=== PATIENT | male | born 1970 | race Caucasian/White ===

== ENCOUNTER 2018-08-08 22:22 | Emergency (ER) | payer SELFPAY ==
[2018-08-08 22:32] VITALS: BP 139/81
--- NOTE | 2018-08-08 23:08 | RADIOLOGY REPORT (SQ) ---
EXAM DESCRIPTION: XR RIBS UNILATERAL WITH CHEST COMPLETED DATE/TME: 08/08/2018 00:00 CLINICAL HISTORY: 48 years, Male, Fell on steps-Has R rib pain/hard to breathe Comparison: None FINDINGS: No focal lung consolidation. No pleural effusion. No pneumothorax. Cardiac and mediastinal silhouette is unremarkable. Soft tissues are unremarkable. Dedicated views of the right ribs show an acute fracture of the eighth posterior rib on the right. IMPRESSION: Right eighth posterior rib fracture. No pneumothorax.
[2018-08-08] MEDS ORDERED: OXYCODONE-ACETAMINOPHEN 5-325 MG TABLET PO ONE (23:14)
--- NOTE | 2018-08-08 23:19 | ER Document Report ---
ED General - General Chief Complaint: Fall Injury Stated Complaint: RIB INJURY/PAIN Time Seen by Provider: 08/08/18 23:03 Mode of Arrival: Ambulatory Information source: Patient TRAVEL OUTSIDE OF THE [place] IN LAST 30 DAYS: No - HPI Patient complains to provider of: Possible rib injury Onset: Just prior to arrival Onset/Duration: Sudden Quality of pain: Sharp, Stabbing Severity: Severe Pain Level: 5 Context: Horseplaying with son Associated symptoms: None Exacerbated by: Movement Relieved by: Denies Similar symptoms previously: No Recently seen / treated by doctor: No Notes: 48-year-old male coming in today with right sided back and chest wall pain after falling down some stairs while horse playing with his son. Symptoms started this evening after a fall down some stairs. Short of breath only because of pain. Past Medical History - Social History Smoking Status: Current Every Day Smoker Chew tobacco use (# tins/day): No Frequency of alcohol use: Social Drug Abuse: None, Marijuana Family History: Reviewed & Not Pertinent Patient has suicidal ideation: No Patient has homicidal ideation: No Endocrine Medical History: Reports: Hx Diabetes Mellitus Type 2 Renal/ Medical History: Denies: Hx Peritoneal Dialysis Past Surgical History: Reports: Hx Appendectomy Review of Systems - Review of Systems Notes: Constitutional: No fevers. No chills. EENT: No eye redness. No eye pain. No ear pain. No sore throat. Cardiovascular: No chest pain. No palpitations. Respiratory: No cough. No shortness of breath. No respiratory distress. Gastrointestinal: No abdominal pain. No nausea, vomiting, or diarrhea. Genitourinary: Atraumatic. No lesions. No pain. No discharge. Musculoskeletal: Right anterior and posterior chest wall pain Skin: No rash or lesions. Lymphatic: No swollen lymph nodes. Neurologic: No headache. No syncope. Psychiatric: No suicidal or homicidal ideation. Physical Exam - Vital signs Vitals: Temp Pulse Resp BP Pulse Ox 98.0 F 88 18 139/81 H 94 08/08/18 22:30 08/08/18 22:30 08/08/18 22:30 08/08/18 22:30 08/08/18 22:30 - Notes Notes: General: Well-developed, well-nourished. In no acute distress. Non-toxic michael earing. Cardiac: Well-perfused. Regular rate and rhythm. No murmurs, rubs, or gallops. Pulmonary: No respiratory distress. No cyanosis. Bilateral lung fiels are clear to auscultation. Abdominal: Non-distended. Non-rigid. Bowels sounds are present in all four quadrants. No guarding or rebound. HEENT: Head is atraumatic. Conjunctivae not reddened. No tearing. PERRL. EOMI. Orbits atraumatic. No periorbital swelling or erythema. Oropharynx is without erythema, swelling, or exudates. Neck: Supple. No adenopathy. No meningismus. Dermatologic: Warm with good turgor. No rash. Atraumatic. Chest: Atraumatic. No chest wall tenderness to palpation. Musculoskeletal: Right lateral and posterior rib tenderness. No crepitus. Genitourinary: Examination deferred Neurologic: No gross neurologic deficits. Psychiatric: Normal mood. Course - Re-evaluation Re-evalutation: 08/08/18 23:16 Some Percocet as ordered. Patient has a single rib fracture in the right posterior rib cage. - Vital Signs Vital signs: Temp Pulse Resp BP Pulse Ox 98.0 F 88 18 139/81 H 94 08/08/18 22:30 08/08/18 22:30 08/08/18 22:30 08/08/18 22:30 08/08/18 22:30 - Diagnostic Test Radiology reviewed: Reports reviewed Discharge - Discharge Clinical Impression: Rib fracture Qualifiers: Encounter type: initial encounter Rib fracture type: single rib Fracture type: closed Laterality: right Qualified Code(s): S22.31XA - Fracture of one rib, right side, initial encounter for closed fracture Condition: Good Disposition: HOME, SELF-CARE Instructions: Rib Injuries and Fractures ([facility]) Additional Instructions: Ice packs to the area 20 minutes/h. Ibuprofen or naproxen [id number] for pain. [place] as needed for moderate to severe pain only. Do not operate vehicles or heavy machinery while taking narcotic medication. Do not take narcotic medication in conjunction with alcohol as this could intensify the side effects. Prescriptions: Hydrocodone/Acetaminophen [[place] 7.5-325 mg Tablet] 1 tab PO Q6HP PRN #12 tablet PRN Reason: Forms: Smoking Cessation Education, Elevated Blood Pressure Referrals: [facility] [Provider Group] - Follow up as needed
== END 2018-08-08 23:26 | disposition home or self-care (01) ==
LOC: ER 22:22
DX: S22.31XA Fracture of one rib, right side, initial encounter for closed fracture (principal); W10.9XXA Fall (on) (from) unspecified stairs and steps, initial encounter; Y93.83 Activity, rough housing and horseplay; F17.200 Nicotine dependence, unspecified, uncomplicated; E11.9 Type 2 diabetes mellitus without complications
CPT/HCPCS: 99283